=== PATIENT | female | born 1960 | race African-American/Black ===

== ENCOUNTER 2018-01-10 17:03 | Emergency (ER) | payer BC ==
[~2018-01-10] VITALS: Ht 175.3 cm; Wt 66.0 kg
[2018-01-10] MEDS ORDERED: KETOROLAC 60MG/2ML VIAL IM ONE (17:45)
[2018-01-10] MEDS ORDERED: ONDANSETRON HCL 4MG/2ML INJ IV STA (19:33)
[2018-01-10] MEDS ORDERED: SODIUM CHLORIDE 0.9% 1,000 ML IV ONE (19:33)
[2018-01-10] MEDS ORDERED: MORPHINE SULFATE 4 MG/ML CPJ (NOT FOR IM USE) IV STA (19:33)
[2018-01-10] MEDS ORDERED: MIDAZOLAM HCL 2 MG/2 ML VIAL IV ONE (19:45)
[2018-01-10 21:17] VITALS: BP 138/90
== END 2018-01-10 21:30 | disposition home or self-care (01) ==
LOC: ER 17:18
DX: S52.692A Other fracture of lower end of left ulna, initial encounter for closed fracture (principal); S52.532A Colles' fracture of left radius, initial encounter for closed fracture; Z90.710 Acquired absence of both cervix and uterus; V00.121A Fall from non-in-line roller-skates, initial encounter; Y93.51 Activity, roller skating (inline) and skateboarding; Y92.017 Garden or yard in single-family (private) house as the place of occurrence of the external cause
CPT/HCPCS: 25605; 73110; 96361; 96372; 96374; 96375; 99284; J1885; J2250; J2270; J2405; J7030; Z7610

== ENCOUNTER 2018-01-21 09:15 | Observation (INO) | payer BC ==
[~2018-01-21] VITALS: Ht 175.3 cm; Wt 69.9 kg
[2018-01-21] MEDS ORDERED: SKIN ADHESIVE 0.7 GM EA TOP ONE (10:20)
[2018-01-21] MEDS ORDERED: BUPIVACAINE HCL/EPINEPHRINE/PF 0.5%/0.0005 10ML ONE (10:24)
[2018-01-21] MEDS ORDERED: MORPHINE SULFATE/PF 1MG/ML 10ML AMP ONE (10:24)
[2018-01-21] MEDS ORDERED: BACITRACIN ZINC 15GM TUBE TOP ONE (10:24)
[2018-01-21] MEDS ORDERED: NORMAL SALINE 0.9% 10 ML SYR ONE (10:25)
[2018-01-21] MEDS ORDERED: BACITRACIN 50,000 UNITS/VIAL ONE (10:25)
[2018-01-21] MEDS ORDERED: LACTATED RINGERS 1,000 ML IV SCH (10:30)
[2018-01-21] MEDS ORDERED: BUPIVACAINE HCL/PF 0.5% (5MG/ML) 10ML ONE ×2 (11:07→11:08)
[2018-01-21] MEDS ORDERED: ROPIVACAINE HCL 10MG/ML 20 ML VIAL EPI ONE (11:51)
[2018-01-21] MEDS ORDERED: GLYCOPYRROLATE 0.2 MG/ML 2ML VIAL ONE (12:13)
[2018-01-21] MEDS ORDERED: HYDROMORPHONE HCL/PF 2MG/ML CPJ IV PRN (12:45)
[2018-01-21] MEDS ORDERED: LABETALOL 5MG/ML SYR 20 MG/4 ML SYRINGE IV PRN (12:45)
[2018-01-21] MEDS ORDERED: ONDANSETRON HCL 4MG/2ML VIAL IV PRN ×2 (12:45→15:45)
[2018-01-21] MEDS ORDERED: MEPERIDINE HCL/PF 25MG/ML CPJ IV PRN (12:45)
[2018-01-21] MEDS ORDERED: HYDROCODONE/ACETAMINOPHEN 10/325MG TABLET PO PRN ×2 (15:45)
[2018-01-21] MEDS ORDERED: ZOLPIDEM TARTRATE 5MG TABLET PO PRN (15:45)
[2018-01-21] MEDS ORDERED: NALOXONE INJ IV PRN (16:15)
[2018-01-21] MEDS ORDERED: ONDANSETRON INJ IV PRN (16:15)
[2018-01-21] MEDS ORDERED: HYDROMORPHONE PCA 10MG/50ML IV PRN (16:15)
[2018-01-21] MEDS ORDERED: DIPHENHYDRAMINE INJ IV PRN (16:15)
[2018-01-21 20:00] VITALS: BP 119/68
[2018-01-21] MEDS: CEFAZOLIN 1000MG PREMIX 50 ML IV SCH (20:32)
[2018-01-21 20:41] VITALS: BP 133/77
[2018-01-22] VITALS: BP 113/67
[2018-01-22] MEDS: CEFAZOLIN 1000MG PREMIX 50 ML IV SCH (03:56)
[2018-01-22 04:00] VITALS: BP 109/50
[2018-01-22 08:00] VITALS: BP 91/44
[2018-01-22 12:00] VITALS: BP 118/53
[2018-01-22 12:04] VITALS: BP 118/53
[2018-01-22 16:00] VITALS: BP 120/49
== END 2018-01-22 16:30 | disposition home or self-care (01) ==
LOC: ER 09:15 → INTOOBSV 10:30 → ORIP 10:30 → 6EST 17:51
PROVIDERS: ADMIT Orthopaedic Surgery; ATTEND Orthopaedic Surgery
DX: S52.572A Other intraarticular fracture of lower end of left radius, initial encounter for closed fracture (principal); V00.121A Fall from non-in-line roller-skates, initial encounter; Y93.51 Activity, roller skating (inline) and skateboarding; Y92.89 Other specified places as the place of occurrence of the external cause; Y99.8 Other external cause status
CPT/HCPCS: 25609; 73100; 96365; 96375; 97166; 99285; A4216; G0168; G0378; J0690; J1170; J2795; J3490; J7050; J7120; J0171; J2274